=== PATIENT | male | born 1955 | race Caucasian/White ===

== ENCOUNTER 2025-02-18 08:33 | Inpatient (IN) | payer MEDICARE, MEDICAID ==
[~2025-02-18] VITALS: Ht 175.3 cm; Wt 110.8 kg
[~2025-02-18 08:33] MED LIST: ACETYLCHOLINE CHLORIDE INTRAOCULAR SOLUTION 1:100 ELECTROLYTE DILUENT IO ONE; BALANCED SALT IRRIG SOLN 15ML ONE; BUPIVACAINE HCL/PF 0.75% (7.5MG/ML) 10ML ONE; BUSP10TA3 PO; CIPROFLOXACIN 0.3% OPHTH SOLN 2.5ML ONE; LIDOCAINE HCL 2% 5ML SYRINGE IV ONE; LIDOCAINE HCL/EPINEPHRINE 2%-EPI 1:200,000 20ML VIAL ONE; LOSA-20 PO; METH50TA5 PO; NEO/POLYMYX B SULF/DEXAMETH OPHTH OINT 3.5GM ONE; PHENYLEPHRINE HCL 2.5% OPHTH DROPS 2ML ONE; PREDNISOLONE ACETATE 1% OPHTH DROPS 5ML ONE; TETRACAINE 0.5% OPHTH DROPS 4ML ONE
[2025-02-18] MEDS ORDERED: MITOMYCIN 0.2 MG KIT OP ONE (09:15)
[2025-02-18] MEDS ORDERED: LACTATED RINGERS 1,000 ML IV SCH (09:30)
[2025-02-18] MEDS ORDERED: HYDRALAZINE 20MG/ML VIAL IV PRN ×2 (10:15)
[2025-02-18] MEDS ORDERED: FAMOTIDINE 20MG/2ML VIAL IV PRN (10:15)
[2025-02-18] MEDS ORDERED: LABETALOL 5MG/ML 4ML INJ IV PRN (10:15)
[2025-02-18] MEDS ORDERED: ONDANSETRON HCL 4MG/2ML INJ IV PRN (10:15)
[2025-02-18] MEDS ORDERED: MEPERIDINE HCL/PF 25MG/ML CPJ IV PRN (10:15)
[2025-02-18] MEDS ORDERED: PROPOFOL 200MG/20ML VIAL IV ONE (10:17)
[2025-02-18] MEDS ORDERED: MIDAZOLAM HCL 2 MG/2 ML VIAL ONE ×2 (10:18→11:36)
[2025-02-18] MEDS ORDERED: FENTANYL CITRATE/PF 50MCG/ML 2ML VIAL ONE (10:19)
[2025-02-18] MEDS ORDERED: EPINEPHRINE 1:1000 1 MG/ML AMP ONE (10:57)
[2025-02-18] MEDS ORDERED: BALANCED SALT IRRIG SOLN COMB2 500ML OP ONE (11:03)
[2025-02-18] MEDS: HYDROMORPHONE HCL/PF 1MG/ML INJ IV PRN (12:33)
[2025-02-18] MEDS: ACETAMINOPHEN 1,000MG/100ML PREMIX IV PRN (12:36)
[2025-02-18 16:00] VITALS: BP 152/84; PULSE 81; RESP 18; TEMP 36.5
[2025-02-18 16:30] VITALS: BP 152/84; PULSE 81; RESP 18; TEMP 36.5292
[2025-02-18] MEDS: ACETAMINOPHEN 325MG TABLET PO PRN (17:53)
[2025-02-18 20:00] VITALS: BP 140/74; PULSE 74; RESP 20; TEMP 36.8; O2SAT 98
[2025-02-18] MEDS: ZOLPIDEM TARTRATE 5MG TABLET PO PRN (22:46)
[2025-02-19] VITALS: BP 142/66; PULSE 67; RESP 20; TEMP 36.3; O2SAT 99
[2025-02-19 04:00] VITALS: BP 127/73; PULSE 66; RESP 20; TEMP 36.2; O2SAT 96
[2025-02-19 08:00] VITALS: BP 159/83; PULSE 70; RESP 19; TEMP 36.6; O2SAT 97
== END 2025-02-19 11:50 | disposition home or self-care (01) | DRG 909 ==
LOC: OR 08:33 → 6EST 08:35
PROVIDERS: ADMIT Ophthalmology; ATTEND Ophthalmology
PROC: 3E0 Administration, Physiological Systems and Anatomical Regions, Introduction (ICD-10-PCS; principal; 2025-02-18)
PROC: 08B43ZZ Excision of Right Vitreous, Percutaneous Approach (ICD-10-PCS; 2025-02-18)
PROC: 08Q6XZZ Repair Right Sclera, External Approach (ICD-10-PCS; 2025-02-18)
DX: H59.311 Postprocedural hemorrhage of right eye and adnexa following an ophthalmic procedure (principal); H21.01 Hyphema, right eye; H43.11 Vitreous hemorrhage, right eye
CPT/HCPCS: A4606; A4615; J0360; J1171; J2003; J2250; J2704; J3010; J3490; J0131